=== PATIENT | female | born 1985 | race Two or more races ===

== ENCOUNTER → 2024-07-26 | Outpatient (CLI) | payer MEDICAID, SELFPAY ==
--- NOTE | 2024-07-26 16:44 | XR_ITS ---
Examination: CT maxillofacial, without intravenous contrast. 2-D sagittal reconstructions. 3-D reconstructions. Date and time of exam:July 26, 2024 at 1720 hours Comparison December 11, 2023 INDICATIONS: Chronic sinus pressure and pain nasal pressure 5 years CTDI: vol (mGy):6.83 DLP: (mGycm):91.2 Technique: Multiple axial images of maxillofacial region, 3.0 mm slice thickness. 2-D sagittal and coronal reconstructions. 3-D reconstructions. Low dose protocols were performed. One or more of the following dose reduction techniques were used; automated exposure control, adjustment of the mA and/or KV according to patient size, use of iterative reconstruction technique. Findings: Trace mucosal thickening ethmoid air cells Mild mucosal thickening ethmoid air cells No occlusion ostiomeatal complexes Mucosal thickening up to 3 mm in the maxillary antra Mild hypertrophy inferior nasal turbinate Trace mucosal thickening in the sphenoid air cells Bilateral otitis media Bilateral chronic mastoiditis Presumed surgical defect in the right mastoid air cells Fluid in mastoid air cells bilaterally No nasopharyngeal mass IMPRESSION: Mild chronic pansinusitis Bilateral otitis media Bilateral chronic mastoiditis Bilateral acute mastoiditis.
== END | disposition home or self-care (01) ==
PROVIDERS: Referring Provider Otolaryngology; Visit Provider Otolaryngology
DX: J32.4 Chronic pansinusitis (principal); H66.93 Otitis media, unspecified, bilateral; H70.13 Chronic mastoiditis, bilateral; H70.003 Acute mastoiditis without complications, bilateral
CPT/HCPCS: 70486